=== PATIENT | male | born 1940 | race Caucasian/White ===

== ENCOUNTER 2024-11-19 14:43 | Inpatient (IN) | payer OTHER ==
[2024-11-19] MEDS ORDERED: NA CHLORIDE 0.9% 250 ML ONE (15:12)
[2024-11-19 15:21] LABS: Absolute Lymphocytes (CBC) 0.9 K/uL (0.7-4.9); Absolute Monocytes 1.2 K/uL (0.1-1.3); Absolute Neutrophil 11.8 K/uL (1.8-8.0); Basophils % 0.3 % (0-1.3); Eosinophils % 0.3 % (0-4.4); Hematocrit 39.4 % (39.6-49.0); Hemoglobin 13.1 g/dL (13.6-17.9); Lymphocytes % 6.1 % (15.3-44.8); MCH 30.1 pg (27.0-35.0); MCHC 33.2 g/dL (32.0-36.0); MCV 90.8 fL (80-100); MPV 8.7 fL (7.6-11.3); Monocytes % 8.3 % (3.3-12.3); Platelets 240 thou/uL (152-406); RBC Red Blood Cell Count 4.34 M/uL (4.33-5.43); Red Cell Distribution Width 12.9 % (12.1-15.2)
[2024-11-19 15:40] LABS: Anion Gap 12.5 mEq/L (5.0-15.0); Troponin High Sensitivity 20.5 pg/mL (<58.9)
[2024-11-19 15:43] LABS: Potassium 2.5 mEq/L (3.5-5.1)
--- NOTE | 2024-11-19 15:53 | RAD REPORT ---
EXAMINATION: ONE VIEW CHEST XR CLINICAL INDICATION: Male, 84 years old.,COUGH TECHNIQUE: Frontal chest projection is submitted. Examination is limited by patient positioning and t echnique. COMPARISON: No prior exam. FINDINGS: The lungs are diffusely emphysematous but grossly clear. No pneumothorax or sizable effusion. The he art is normal in size. Mediastinal contours are unremarkable. IMPRESSION: No acute intrathoracic abnormalities.
--- NOTE | 2024-11-19 16:11 | EDPHYS ---
Physician Documentation [facility] Name: Juan Carlos Vazquez Jr Age: 84 yrs Sex: Male : 1940 Arrival Date: 11/19/2024 Time: 14:43 Bed 5 Private MD: [facility] ED Physician Oswaldo Wheeler HPI: 11/19 15:16 This 84 yrs old Male presents to ER via Wheelchair with complaints of ec2 Breathing Difficulty. Historical: - Allergies: 14:53 No Known Allergies; iw - PMHx: 14:53 Hypertensive disorder; iw - Immunization history:: Adult Immunizations up to date. - Infectious Disease History:: Denies. - Social history:: Smoking status: Patient/guardian denies using tobacco, but has a distant history of tobacco abuse. ROS: 16:11 Constitutional: as per hpi ec2 Exam: 16:10 Constitutional: GEN: NAD Head: atraumatic Eyes: EOMI Ears: External ears are ec2 normal. CV: regular rate LUNGS: no respiratory distress ABD: non-distended SKIN: no evidence of rashes MSK: no evidence of trauma Vital Signs: 14:50 BP 134 / 56; Resp 19; Temp 98.3; Pulse Ox 95% ; Pain 0/10; iw 15:15 Pulse 84; ec2 16:38 BP 118 / 58; Pulse 81; Resp 18; Pulse Ox 95% on R/A; ph 14:50 Pain Scale: Adult iw MDM: 14:53 Medical Screening Exam initiated ec2 15:16 ED course: EKG independently reviewed and interpreted by me, shows sinus rhythm, rate ec2 of 84, no acute ST segment elevations, frequent PVCs noted. Intervals are nonactionable.. 15:47 Data reviewed: vital signs, nurses notes. ED course: Patient with hypokalemia at 2.5, ec2 will supplement magnesium and potassium. Likely explains patient's underlying PVCs.. 16:01 ED course: Metabolic profile shows hyponatremia, hypokalemia with potassium of 2.5, ec2 renal dysfunction with a creatinine of 2.15 and a GFR of 30. CBC shows slight leukocytosis at 14. BNP mildly elevated at 3100. Troponin within normal ranges. Chest x-ray shows no acute intrathoracic process. Will admit for hyponatremia, hypokalemia, PVCs. Discussed with hospitalist, pending admission.. 11/19 14:54 Order name: Basic Metabolic Panel; Complete Time: 16:00 ec2 11/19 14:54 Order name: CBC with Diff; Complete Time: 16:00 ec2 11/19 14:54 Order name: NT PRO-BNP; Complete Time: 16:00 ec2 11/19 14:54 Order name: Troponin HS; Complete Time: 16:00 ec2 11/19 14:54 Order name: UAM 2 11/19 17:03 Order name: T4 Free EDMS 11/19 17:03 Order name: Thyroid Stimulating Hormone EDMS 11/19 17:03 Order name: Basic Metabolic Panel EDMS 11/19 17:03 Order name: Basic Metabolic Panel EDMS 11/19 17:03 Order name: Basic Metabolic Panel EDMS 11/19 17:03 Order name: Basic Metabolic Panel [facility] 11/19 17:03 Order name: CBC with Automated Diff EDMS 11/19 17:03 Order name: CBC with Automated Diff EDMS 11/19 17:03 Order name: CBC with Automated Diff EDMS 11/19 17:03 Order name: CBC with Automated Diff EDMS 11/19 17:03 Order name: Hemoglobin A1c EDMS 11/19 17:03 Order name: Hemoglobin A1c EDMS 11/19 17:03 Order name: Lipid Profile EDMS 11/19 17:03 Order name: Lipid Profile [facility] 11/19 17:03 Order name: Magnesium EDMS 11/19 17:03 Order name: Magnesium EDMS 11/19 17:03 Order name: Magnesium EDMS 11/19 17:03 Order name: Magnesium EDMS 11/19 17:03 Order name: Phosphorus EDMS 11/19 17:03 Order name: Phosphorus EDMS 11/19 17:03 Order name: Phosphorus EDMS 11/19 17:03 Order name: Phosphorus EDMS 11/19 17:03 Order name: Troponin High Sensitivity EDMS 11/19 17:03 Order name: Troponin High Sensitivity EDMS 11/19 17:03 Order name: Troponin High Sensitivity EDMS 11/19 17:03 Order name: Basic Metabolic Panel EDMS 11/19 14:54 Order name: XRAY Chest (1 view); Complete Time: 16:00 ec2 11/19 14:54 Order name: EKG; Complete Time: 14:55 ec2 11/19 17:02 Order name: CONS Physician Consult ED[facility] 11/19 17:02 Order name: Physical Therapy Consult [facility] 11/19 14:54 Order name: Cardiac monitoring; Complete Time: 15:18 ec2 11/19 14:54 Order name: EKG - Nurse/Tech; Complete Time: 15:18 ec2 11/19 14:54 Order name: IV Saline Lock; Complete Time: 15:17 ec2 11/19 14:54 Order name: Labs collected and sent; Complete Time: 15:17 ec2 11/19 14:54 Order name: O2 Per Protocol; Complete Time: 15:17 ec2 11/19 14:54 Order name: O2 Sat Monitoring; Complete Time: 15:17 ec2 11/19 14:55 Order name: Cath; Complete Time: 16:26 ec2 Administered Medications: 15:21 Drug: NS 0.9% IV 250 ml IV at bolus once; to be given as a bolus over 30 minutes Route: ph IV; Rate: bolus; Site: right antecubital; 16:03 Follow up: Response: No adverse reaction; IV Status: Completed infusion ph 17:00 Drug: Potassium Chloride PO 40 mEq PO once Route: PO; ph 17:09 Follow up: Response: No adverse reaction ph 17:00 Drug: Potassium Chloride IV 20 mEq IV at calculated rate once; administer over 1-2 ph hours Route: IV; Rate: calculated rate; Site: right forearm; 17:09 Follow up: Response: No adverse reaction; IV Status: Infusion continued upon admission ph 17:00 Drug: Magnesium Sulfate IVPB 2 grams IVPB once over 30 mins Route: IVPB; Infused Over: ph 30 mins; Site: right forearm; 17:09 Follow up: Response: No adverse reaction; IV Status: Infusion continued upon admission ph Disposition: 16:09 Critical Care:. ec2 Disposition Summary: 11/19/24 16:10 Hospitalization Ordered Notes: Hospitalization Status: Inpatient Admission ec2 Provider: Pj Strange [facility] ec2 Condition: Stable ec2 Problem: an acute exacerbation ec2 Symptoms: are unchanged ec2 Bed/Room Type: Standard ec2 Room Assignment: 209(11/19/24 17:07) Diagnosis - Volume Overload, Hypokalemia, Hyponatremia ec2 Forms: - Medication Reconciliation Form ec2 - SBAR form ec2 - Leadership Thank You Letter ec2 Critical care time excluding procedures: 16:09 Critical care time: Bedside Care: 30 minutes, Consultation: 5 minutes, Family ec2 Intervention: 5 minutes. Total time: 40 minutes Signatures: Dispatcher [employer] Maine Mcqueen RN RN Anna Golden RN RN ss Steffi Payan RN RN ph Corral, Edwin, MD MD ec2 Corrections: (The following items were deleted from the chart) 17:07 16:10 ec2 ss
--- NOTE | 2024-11-19 16:11 | ER ---
Nurse's Notes [facility] Name: Juan Carlos Vazquez Jr Age: 84 yrs Sex: Male : 1940 Arrival Date: 11/19/2024 Time: 14:43 Bed 5 Private MD: [facility] Diagnosis: Volume Overload, Hypokalemia, Hyponatremia Presentation: 11/19 14:50 Chief complaint: Patient states: SOB X 1 week, felt hot flashes , it's been hard to iw urinate . He was confused this morning. Coronavirus screen: Client presents with at least one sign or symptom that may indicate coronavirus-19. Ebola Screen: No symptoms or risks identified at this time. Risk Assessment: Do you want to hurt yourself or someone else? Patient reports no desire to harm self or others. Onset of symptoms was November 12, 2024. 14:50 Method Of Arrival: Wheelchair iw 14:50 Acuity: RACHELLE 3 iw 14:52 Initial Sepsis Screen: Does the patient meet any 2 criteria? Does the patient have a iw suspected source of infection? No. Patient's initial sepsis screen is negative. Triage Assessment: 15:18 General: Appears in no apparent distress. comfortable, Behavior is calm, cooperative. ph Pain: Denies pain. Neuro: Level of Consciousness is awake, alert, obeys commands, Oriented to person, place, situation. Cardiovascular: Capillary refill < 3 seconds in bilateral fingers Patient's skin is warm and dry. Respiratory: Respiratory: Reports shortness of breath at rest Onset: The symptoms/episode began/occurred x approx 1 week. GI: No signs and/or symptoms were reported involving the gastrointestinal system. : Reports reduced urination and foul smelling urine. Musculoskeletal: Circulation, motion, and sensation intact. Range of motion: intact in all extremities. Historical: - Allergies: 14:53 No Known Allergies; iw - PMHx: 14:53 Hypertensive disorder; iw - Immunization history:: Adult Immunizations up to date. - Infectious Disease History:: Denies. - Social history:: Smoking status: Patient/guardian denies using tobacco, but has a distant history of tobacco abuse. Screenin:18 [facility] ED Fall Risk Assessment (Adult) History of falling in the last 3 months, ph including since admission No falls in past 3 months (0 pts) Confusion or Disorientation No (0 pts) Intoxicated or Sedated No (0 pts) Impaired Gait No (0 pts) Mobility Assist Device Used No (0 pt) Altered Elimination No (0 pt) Score/Fall Risk Level 0 - 2 = Low Risk Oriented to surroundings, Maintained a safe environment, Hourly rounding (assess needs \T\ fall precautionary measures) done. Abuse screen: Denies threats or abuse. Denies injuries from another. Nutritional screening: No deficits noted. Tuberculosis screening: No symptoms or risk factors identified. Assessment: 15:20 General: SEE TRIAGE ASSESSMENT. ph 17:01 Reassessment: Patient appears in no apparent distress at this time. Patient and/or ph family updated on plan of care and expected duration. Pain level reassessed. Patient is alert, oriented x 3, equal unlabored respirations, skin warm/dry/pink. 17:19 Cardiovascular: Rhythm is regular. Respiratory: Airway is patent Respiratory effort is ko1 even, unlabored, Breath sounds are diminished bilaterally. Vital Signs: 14:50 BP 134 / 56; Resp 19; Temp 98.3; Pulse Ox 95% ; Pain 0/10; iw 15:15 Pulse 84; ec2 16:38 BP 118 / 58; Pulse 81; Resp 18; Pulse Ox 95% on R/A; ph 14:50 Pain Scale: Adult iw ED Course: 14:45 Patient arrived in ED. as 14:45 [facility] is Private Physician. as 14:47 Oswaldo Wheeler MD is Attending Physician. ec2 14:52 Triage completed. iw 14:54 Arm band placed on. iw 14:58 Steffi Payan, RN is Primary Nurse. ph 15:18 Initial lab(s) drawn, by ut, sent to lab. EKG done, by ED staff, reviewed by Oswaldo Wheeler MD. Inserted saline lock: 22 gauge in right forearm, using aseptic technique. Blood collected. Flushed with 10 mL NS. 15:20 Patient has correct armband on for positive identification. Placed in gown. Bed in low ph position. Call light in reach. Side rails up X 1. Client placed on continuous cardiac and pulse oximetry monitoring. NIBP monitoring applied. quality assurance monitor on. Door closed. Noise minimized. 15:30 XRAY Chest (1 view) In Process Unspecified. EDMS 16:10 Pj Strange is Hospitalizing Provider. ec2 16:37 Archuleta cath inserted, using sterile technique, 12 Fr., by ut, balloon inflated, to ph gravity drainage, urine specimen collected. returned cloudy urine. Patient tolerated well. IV discontinued, intact, bleeding controlled, No redness/swelling at site. Pressure dressing applied. Inserted saline lock: 22 gauge in right forearm, using aseptic technique. Flushed with 10 mL NS. 17:09 No provider procedures requiring assistance completed. Patient admitted, IV remains in ph place. 17:19 Provided Education on: admit. ko1 Administered Medications: 15:21 Drug: NS 0.9% IV 250 ml IV at bolus once; to be given as a bolus over 30 minutes Route: ph IV; Rate: bolus; Site: right antecubital; 16:03 Follow up: Response: No adverse reaction; IV Status: Completed infusion ph 17:00 Drug: Potassium Chloride PO 40 mEq PO once Route: PO; ph 17:09 Follow up: Response: No adverse reaction ph 17:00 Drug: Potassium Chloride IV 20 mEq IV at calculated rate once; administer over 1-2 ph hours Route: IV; Rate: calculated rate; Site: right forearm; 17:09 Follow up: Response: No adverse reaction; IV Status: Infusion continued upon admission ph 17:00 Drug: Magnesium Sulfate IVPB 2 grams IVPB once over 30 mins Route: IVPB; Infused Over: ph 30 mins; Site: right forearm; 17:09 Follow up: Response: No adverse reaction; IV Status: Infusion continued upon admission ph Medication: 15:20 VIS not applicable for this client. ph Outcome: 16:10 Decision to Hospitalize by Provider. ec2 17:19 Condition: stable ko1 17:19 Instructed on the need for admit, 17:49 Patient left the ED. ko1 Signatures: Dispatcher [employer] Vivien Mcfarland Irene, RN RN iw Steffi Payan RN RN ph Tatianna Gamino RN RN ko1 Oswaldo Wheeler MD MD ec2 Corrections: (The following items were deleted from the chart) 14:53 14:50 Chief complaint: Patient states: SOB X 1 week, felt hot flashes , it's been hard iw to urinate iw 15:01 14:50 Resp 19bpm; Pulse Ox 95%; Temp 98.3F; Pain 0/10, Adult; iw iw
--- NOTE | 2024-11-19 16:24 | P.HP ---
Certification for Inpatient Patient admitted to: Inpatient With expected LOS: >2 Midnights Practitioner: I am a practitioner with admitting privileges, knowledge of patient current condition, hospital course, and medical plan of care. Services: Services provided to patient in accordance with Admission requirements found in Title 42 Section 412.3 of the Code of Federal Regulations Patient History Date of Service: 11/19/24 Reason for admission: Electrolyte abnormalities History of Present Illness: Juan Carlos Vazquez is an 84-year-old male with past medical history of hypertension, CKD who presents to the ED with shortness of breath for one week. Juan Carlos and the friends with him not a good historian. Juan Carlos reports he eats well and denies fever, chills, chest pain, and urinary symptoms. He reports being short of breath while walking. On evaluation, bilateral lung sounds are clear, no acute distress, on RA with stable vital signs. Laboratory evaluation showing BNP was 3162, BUN/creatinine 69/2.15, GFR 30, potassium 2.5, sodium 125, serum glucose 158. Chest x-ray reports "The lungs are diffusely emphysematous but grossly clear." Juan Carlos will be admitted to hospitalist service for hyponatremia, hypokalemia, and SOB. Nephrology consulted. - Past Medical/Surgical History -: HTN -: CKD Past Surgical History: Unable to obtain - Family History Family History: Reviewed- Non-Contributory - Social History Smoking Status: Never smoker Alcohol use: No CD- Drugs: No Review of Systems Respiratory: Shortness of Breath, SOB with Excertion Physical Examination - Physical Exam General: Alert, In no apparent distress, Oriented x3 HEENT: Atraumatic, Normocephalic, PERRLA Neck: Supple, 2+ carotid pulse no bruit Respiratory: Clear to auscultation bilaterally, Normal air movement Cardiovascular: No edema, Normal pulses, Regular rate/rhythm, Normal S1 S2 Gastrointestinal: Normal bowel sounds, Soft and benign Musculoskeletal: No clubbing, No warmth Neurological: Normal speech, Normal tone - Studies Laboratory Data (last 24 hrs) 11/19/24 11/19/24 15:15 15:15 WBC 13.90 H Hgb 13.1 L Hct 39.4 L Plt Count 240 Sodium 125 L Potassium 2.5 L* BUN 69 H Creatinine 2.15 H Glucose 158 H Assessment and Plan - Plan Assessment and Plan Hypervolemia hyponatremia with CKD Suspect CHF CKD stage unspecified Hypokalemia -potassium 2.5, sodium 125, BNP 3163 -clinically euvolemic- no edema present -mag and potassium given in the ED -Chest x-ray reports "The lungs are diffusely emphysematous but grossly clear." -No records to verify Shortness of breath 2/2 emphysema -Chest x-ray reports "The lungs are diffusely emphysematous but grossly clear." - currently on room air -duonebs UTI -UA suggestive of UTI -rocephin -Follow urine culture Hyperglycemic -A1C in the AM -serum glucose 158 HTN -continue home medication when appropriate DVT ppx heparin Full code LOS 23 hour obs Discharge Plan: Home Plan to discharge in: 48 Hours - Advance Directives Does patient have a Living Will: No Does patient have a Durable POA for Healthcare: No
[2024-11-19] MEDS ORDERED: POTASSIUM CL SA 10 MEQ TAB PO ONE (16:28)
[2024-11-19] MEDS ORDERED: Magnesium Sulfate 2gm IVPB 2 G/50 ML BAG IV ONE (16:29)
[2024-11-19] MEDS ORDERED: NA CHLORIDE 0.9% 500 ML ONE (16:29)
[2024-11-19] MEDS ORDERED: KCL 20 MEQ/100 mL IVPB 100 ML IV ONE (16:29)
[2024-11-19] MEDS ORDERED: ACETAMINOPHEN 325 MG TABLET PO PRN (16:53)
[2024-11-19] MEDS: NA CHLORIDE 0.9% 1,000 ML IV SCH (17:00)
[2024-11-19 17:09] LABS: Specific Gravity 1.011 (1.005-1.030); Sqamous Epithelial None Seen /HPF (None Seen); Urine Bacteria <20 /HPF (<20); Urine Bilirubin NEGATIVE (Negative); Urine Blood 2+ (Negative); Urine Clarity Extremely Turbid (Clear); Urine Color Light-Orange (Yellow); Urine Crystals Unidentified Few /HPF (None Seen); Urine Culture Reflex Order REFLEXED; Urine Glucose NEGATIVE (Negative); Urine Ketones NEGATIVE (Negative); Urine Micro Reflex YN NO BILL MICROSCOPIC; Urine Mucus Slight /HPF (None Seen); Urine Nitrite NEGATIVE (Negative); Urine Protein 1+ (Negative); Urine RBC 21-50 /HPF (None Seen); Urine Urobilinogen Normal (Normal); Urine WBC >50 /HPF (<5); Urine WBC Clump Many /HPF (None Seen); Urine Yeast (Budding) Moderate /HPF (None Seen)
[2024-11-19 18:03] VITALS: BMI 21.0
[2024-11-19 18:15] LABS: Thyroid Stimulating Hormone 2.53 uIU/mL (0.358-3.740)
[2024-11-19] MEDS: POTASSIUM 25 MEQ EFFERV TAB PO SCH (19:55)
[2024-11-19] MEDS: CEFTRIAXONE 1,000 MG in NA CHLORIDE 0.9% 50 ML IVPB SCH (19:55)
[2024-11-19] MEDS: ALBUTEROL 2.5 MG/3 ML NEB SOL NEB SCH (20:27)
[2024-11-19] MEDS: IPRATROPIUM BROM 0.5MG/2.5ML NEB SCH (20:27)
[2024-11-19 22:48] LABS: Anion Gap 10.1 mEq/L (5.0-15.0); Troponin High Sensitivity 15.4 pg/mL (<58.9)
[2024-11-19 22:49] LABS: Potassium 3.1 mEq/L (3.5-5.1)
[2024-11-20] MEDS: POTASSIUM CL SA 10 MEQ TAB PO ONE (00:01)
[2024-11-20 06:29] LABS: Absolute Eosinophils 0.1 K/uL (0-0.5); Absolute Monocytes 1.1 K/uL (0.1-1.3); Basophils % 0.3 % (0-1.3); Eosinophils % 0.7 % (0-4.4); Hematocrit 36.6 % (39.6-49.0); Hemoglobin 12.7 g/dL (13.6-17.9); Lymphocytes % 6.8 % (15.3-44.8); MCH 30.7 pg (27.0-35.0); MCHC 34.5 g/dL (32.0-36.0); MCV 88.9 fL (80-100); MPV 8.9 fL (7.6-11.3); Monocytes % 8.1 % (3.3-12.3); Neutrophils % 84.1 % (41.7-73.7); Nucleated Red Blood Cells % 0.1 % (0-0); Platelets 288 thou/uL (152-406); RBC Red Blood Cell Count 4.12 M/uL (4.33-5.43); Red Cell Distribution Width 13.1 % (12.1-15.2)
[2024-11-20 06:55] LABS: Anion Gap 10.5 mEq/L (5.0-15.0); Magnesium 2.6 mg/dL (1.6-2.4); Potassium 3.5 mEq/L (3.5-5.1)
--- NOTE | 2024-11-20 09:03 | P.PN ---
Date of Service: 11/20/24 Subjective: No acute events overnight Breathing well on room air Very poor historian-[facility] Unsure of home meds, possibly takes a diuretic? ROS: 10 point ROS as noted above, otherwise negative Physical exam GEN: Alert, oriented, NAD HEENT: Normal conjunctiva, sclera anicteric CV: Regular rate and rhythm, no edema Pulm: Nonlabored respirations on room air ABD: Soft, nontender, nondistended MSK: No joint tenderness Integumentary: No rashes Neuro: Normal speech, normal affect Vitals reviewed Assessment and Plan Hyponatremia Elevated BNP Nonsustained VT CKD stage unspecified Hypokalemia -clinically euvolemic- no edema present -mag and potassium given in the ED -Chest x-ray reports "The lungs are diffusely emphysematous but grossly clear." -Patient very poor historian, unsure of any medical history or what medications he takes at home -[facility], nurse reaching out to pharmacy to obtain his home medications -Patient does believe that he takes a diuretic -Does not appear grossly overloaded on exam -Await med rec, continue gentle IV fluids for now, echocardiogram ordered -Cardiology consulted given nonsustained V. tach overnight -Denies previous cardiac evaluation of any kind that he can remember -Does report some dyspnea on exertion periodically Shortness of breath 2/2 emphysema -Chest x-ray reports "The lungs are diffusely emphysematous but grossly clear." - currently on room air -duonebs PRN UTI -UA suggestive of UTI -rocephin -Follow urine culture HTN -continue home medication when appropriate DVT ppx heparin Full code Discharge Plan: Home Plan to discharge in: 48 Hours Time Spent Managing Pts Care (In Minutes): 35
[2024-11-20] MEDS: POTASS/SODIUM PHOSPHATE 1 PKT POWD.PACK PO SCH (10:00)
--- NOTE | 2024-11-20 10:13 | P.CNS ---
Date of Consult: 11/20/24 Reason for Consult: Hyponatremia, CARMELO, hypokalemia Requesting Physician: Ronit Trevino Chief Complaint: Electrolyte abnormalities History of Present Illness: Pt is an elderly male who is a poor historian so most of the history is obtained through chart review who came in through the ER with some vague complains and confusion it appears and was found on blood work and urine testing to have evidence of renal impairment, hypokalemia and hyponatremia and pyuria, UTI. It appears prieto was placed in the ER, he is not able to tell me if he has bladder or prostate issues. Unclear which home meds he is takin but he mentions possible diuretic use. He denies acute complaints currently. Allergies No Known Allergies Allergy (Unverified 11/19/24 18:03) - Past Medical/Surgical History Diabetic: No -: HTN -: CKD - Social History Smoking Status: Former smoker Alcohol use: No CD- Drugs: No Caffeine use: No Place of Residence: Home Review of Systems is unable to be obtained Physical Examination Temp Pulse Resp BP Pulse Ox 98.9 F 77 20 118/58 L 100 11/20/24 08:00 11/20/24 08:00 11/20/24 08:00 11/20/24 08:00 11/20/24 08:00 General: In no apparent distress, Cooperative HEENT: Atraumatic, Normocephalic Neck: Supple Respiratory: Normal air movement, Other (No rhonchi or wheezing) Cardiovascular: No edema, Regular rate/rhythm, No gallops Gastrointestinal: Soft and benign, Non-distended, No tenderness Musculoskeletal: No swelling, No tenderness, Other (muscle mass loss) Integumentary: No rashes Neurological: Normal speech Urinary: Prieto catheter Laboratory Data (last 24 hrs) 11/19/24 11/19/24 15:15 15:15 WBC 13.90 H Hgb 13.1 L Hct 39.4 L Plt Count 240 Sodium 125 L Potassium 2.5 L* BUN 69 H Creatinine 2.15 H Glucose 158 H Conclusions/Impression: A/P) 1. Acute or sub acute Stage II 2nd to apparent volume depletion, pre renal azotemia given improvement in labs post hydration. Unknown baseline 2. Hyponatremia, mod, unclear duration, again likely with hypovolemic component. Cont to trend Na levels closely, avoid rapid correction, thus far not seen 3. Hypokalemia 2nd to possible impaired PO intake, possible OP diuretic use, other -repleting, will place on IVF with KCL 4. Pyuria, microscopic hematuria, bacteriuria c/w UTI POA. Prieto it appears inserted in the ER, maintain for now. Yeast noted on UA, will add Fluconazole to the IV Rocephin coverage
[2024-11-20] MEDS: POTASSIUM 25 MEQ EFFERV TAB ONE (10:37)
[2024-11-20] MEDS: NS KCL 20MEQ 20 MEQ/1,000 ML BAG IV SCH (11:20)
[2024-11-20] MEDS: FLUCONAZOLE 100 MG TAB PO SCH (11:20)
--- NOTE | 2024-11-20 12:39 | P.CNS ---
Date of Consult: 11/20/24 Chief Complaint: Electrolyte abnormalities History of Present Illness: Patient with no significant PMH, presented with weakness, SOB, patient electrolytes were low, cardiology was consulted for NSVT. patient denies having any prior history of cardiac problems. Allergies No Known Allergies Allergy (Unverified 11/19/24 18:03) Home medications list reviewed: Yes - Past Medical/Surgical History Diabetic: No -: HTN -: CKD - Social History Smoking Status: Former smoker Alcohol use: No CD- Drugs: No Caffeine use: No Place of Residence: Home Review of Systems 10-point ROS is otherwise unremarkable Physical Examination Temp Pulse Resp BP Pulse Ox 98.9 F 77 20 118/58 L 100 11/20/24 08:00 11/20/24 08:00 11/20/24 08:00 11/20/24 08:00 11/20/24 08:00 General: Alert, In no apparent distress HEENT: Atraumatic, PERRLA, Mucous membr. moist/pink, EOMI, Sclerae nonicteric Neck: Supple, 2+ carotid pulse no bruit, No LAD, Without JVD or thyroid abnormality Respiratory: Clear to auscultation bilaterally, Normal air movement Cardiovascular: Regular rate/rhythm, Normal S1 S2 Gastrointestinal: Normal bowel sounds, No tenderness Musculoskeletal: No tenderness Integumentary: No rashes Neurological: Normal gait, Normal speech, Normal tone, Normal affect Lymphatics: No axilla or inguinal lymphadenopathy Laboratory Data (last 24 hrs) 11/20/24 11/20/24 11/19/24 05:49 05:49 22:05 WBC 14.30 H Hgb 12.7 L Hct 36.6 L Plt Count 288 Sodium 127 L 128 L Potassium 3.5 3.1 L D BUN 58 H 69 H Creatinine 1.67 H 1.99 H Glucose 116 H 184 H Phosphorus 2.0 L Magnesium 2.6 H Triglycerides 86 Cholesterol 72 HDL Cholesterol 19 L Cholesterol/HDL Ratio 3.79 11/19/24 11/19/24 15:15 15:15 WBC 13.90 H Hgb 13.1 L Hct 39.4 L Plt Count 240 Sodium 125 L Potassium 2.5 L* BUN 69 H Creatinine 2.15 H Glucose 158 H Phosphorus Magnesium Triglycerides Cholesterol HDL Cholesterol Cholesterol/HDL Ratio - Problems (1) NSVT (nonsustained ventricular tachycardia) Current Visit: Yes Status: Acute Plan: patient K was low, please replace K aggressively for a level more than 4 and Mg for a level more than 2 get echo start lopressor 25 mg po BID If NSVT re happen then patient will need ischemia evaluation.
[2024-11-20 13:27] LABS: Anion Gap 6.5 mEq/L (5.0-15.0); Potassium 3.5 mEq/L (3.5-5.1)
[2024-11-20] MEDS: METOPROLOL TAR 25 MG TAB PO SCH (17:22)
[2024-11-20 17:53] LABS: UR SODIUM < 15 mmol/L (27-287)
[2024-11-20 17:55] LABS: UR PROTEIN 48.1 mg/dL (<11.9); Urine Protein/Creatinine Ratio 0.73 ratio (<0.15)
[2024-11-21 04:56] LABS: Absolute Basophils 0.1 K/uL (0-0.5); Absolute Eosinophils 0.2 K/uL (0-0.5); Absolute Lymphocytes (CBC) 1.6 K/uL (0.7-4.9); Absolute Monocytes 0.9 K/uL (0.1-1.3); Absolute Neutrophil 7.1 K/uL (1.8-8.0); Basophils % 0.6 % (0-1.3); Eosinophils % 1.6 % (0-4.4); Hematocrit 33.7 % (39.6-49.0); Hemoglobin 11.6 g/dL (13.6-17.9); Lymphocytes % 16.2 % (15.3-44.8); MCH 31.1 pg (27.0-35.0); MCHC 34.5 g/dL (32.0-36.0); MCV 90.3 fL (80-100); MPV 8.7 fL (7.6-11.3); Monocytes % 9.2 % (3.3-12.3); Neutrophils % 72.4 % (41.7-73.7); Platelets 244 thou/uL (152-406); RBC Red Blood Cell Count 3.73 M/uL (4.33-5.43)
[2024-11-21 05:12] LABS: Anion Gap 9.3 mEq/L (5.0-15.0); Magnesium 2.1 mg/dL (1.6-2.4); Phosphorus 2.3 mg/dL (2.5-4.9); Potassium 3.3 mEq/L (3.5-5.1)
[2024-11-21] MEDS ORDERED: POTASSIUM 25 MEQ EFFERV TAB PO ONE (07:06)
[2024-11-21 07:30] LABS: Band Neutrophils 2 % (0-1); Differential Total Cells Count 100; Eosinophils 4 % (0-3); Lymphocytes 20 % (15-42); Monocytes 8 % (0-10); Segmented Neutrophils 65 % (40-80)
[2024-11-21 07:31] LABS: Blood Morphology Comment NOT SEEN (NOT SEEN); Metamyelocytes 1 % (0-0); Platelet Estimate ADEQ
[2024-11-21] MEDS: MIST INHAL IH SCH (08:53)
[2024-11-21] MEDS: TIOTROPIUM BROMIDE 4 GM IH SCH (08:53)
[2024-11-21] MEDS: LORATADINE 10 MG TAB PO SCH (08:59)
[2024-11-21] MEDS: AMLODIPINE 10 MG TAB PO SCH (08:59)
[2024-11-21] MEDS: TAMSULOSIN 0.4 MG SR CAP PO SCH (08:59)
[2024-11-21] MEDS: FOLIC ACID 1 MG TABLET PO SCH (08:59)
[2024-11-21] MEDS: THIAMINE HCL 100 MG TABLET PO SCH (09:00)
--- NOTE | 2024-11-21 09:04 | P.PN ---
Date of Service: 11/21/24 Subjective: No acute events overnight Breathing well on room air Med rec performed yesterday Holding PO lasix ROS: 10 point ROS as noted above, otherwise negative Physical exam GEN: Alert, oriented, NAD HEENT: Normal conjunctiva, sclera anicteric CV: Regular rate and rhythm, no edema Pulm: Nonlabored respirations on room air ABD: Soft, nontender, nondistended MSK: No joint tenderness Integumentary: No rashes Neuro: Normal speech, normal affect Vitals reviewed Assessment and Plan Hyponatremia Elevated BNP Nonsustained VT CKD stage unspecified Hypokalemia -clinically euvolemic- no edema present -Sodium improving -mag and potassium replacement -Chest x-ray reports "The lungs are diffusely emphysematous but grossly clear." -Patient very poor historian, unsure of any medical history or what medications he takes at home -Holding home PO lasix -Cardiology consulted given nonsustained V. tach overnight, had only 5 beats last night -Continue metoprolol as recommended by cardiology -Replete electrolytes -Denies previous cardiac evaluation of any kind that he can remember -Does report some dyspnea on exertion periodically Shortness of breath 2/2 emphysema -Chest x-ray reports "The lungs are diffusely emphysematous but grossly clear." - currently on room air -duonebs PRN UTI -Urine culture shows E. coli -Started Augmentin -RAULITO prieto this AM HTN -Home medications continued, holding Lasix DVT ppx heparin Full code Discharge Plan: Home Plan to discharge in: 48 Hours Time Spent Managing Pts Care (In Minutes): 35
[2024-11-21] MEDS: AMOX/K CLAV 875 MG TAB PO SCH (09:50)
[2024-11-21] MEDS: KCL 20 MEQ/100 mL IVPB 20 MEQ/100 ML BAG IV SCH (09:50)
[2024-11-21] MEDS: NA CHLORIDE 0.9% 250 ML ONE (09:50)
--- NOTE | 2024-11-21 10:43 | P.PN ---
(S) Pt has no acute complaints, labs improving, pt reports managing meds on his own at home (O) vitals reviewed in the EMR General: In no apparent distress, Cooperative HEENT: Atraumatic, Normocephalic Neck: Supple Respiratory: Normal air movement, Other (No rhonchi or wheezing) Cardiovascular: No edema, Regular rate/rhythm, No gallops Gastrointestinal: Soft and benign, Non-distended, No tenderness Musculoskeletal: No swelling, No tenderness, Other (muscle mass loss) Integumentary: No rashes Neurological: Normal speech Urinary: Archuleta catheter Conclusions/Impression: A/P) 1. Acute or sub acute Stage II 2nd to apparent volume depletion, pre renal azotemia given improvement in labs post hydration. Unknown baseline but with levels improving nicely 2. Hyponatremia, mod, unclear duration, again likely with hypovolemic component. Na level now > 130, acceptable rate of correction 3. Hypokalemia 2nd to possible impaired PO intake, OP diuretic use, other - repleting, hold lasix on discharge 4. Pyuria, microscopic hematuria, bacteriuria c/w UTI POA. Archuleta it appears inserted in the ER, assess voiding trial. Yeast noted on UA, did add Fluconazole to the IV Rocephin coverage and can switch to PO cephalosporin on discharge to complete course
[2024-11-21] MEDS: POTASSIUM PHOS IN 0.9 % NACL 15 MMOL/250 ML BAG IV ONE (12:26)
--- NOTE | 2024-11-21 13:41 | EKG ---
Test Date: 2024-11-19 Test Time: 15:09:45 Cryptologic Linguist: PH MEASUREMENT RESULTS: Intervals: Rate: 84 [place]: 180 QRSD: 112 QT: 412 QTc: 486 [place]: P: 77 [place]: 180 QRS: 71 T: 79 INTERPRETIVE STATEMENTS: Sinus rhythm with frequent premature ventricular complexes and premature atrial complexes ST abnormality, possible digitalis effect Prolonged QT Abnormal ECG No previous ECG available for comparison Electronically Signed On 11-21-24 13:37:03 DENTAL EQUIPMENT MECH[employer]IC by Arya Ghosh
[2024-11-21] MEDS: FUROSEMIDE 40 MG/4 ML VIAL ONE (19:37)
[2024-11-21] MEDS: POTASSIUM CL SA 10 MEQ TAB PO ONE (20:39)
[2024-11-21 22:07] LABS: Albumin/Globulin Ratio 0.5 (1.1-1.8); Anion Gap 8.9 mEq/L (5.0-15.0); Bilirubin Total 0.2 mg/dL (0.2-1.0); Globulin 3.9 g/dL (2.3-3.5); Potassium 3.9 mEq/L (3.5-5.1); Protein, Total 5.9 g/dL (6.4-8.2)
[2024-11-21 22:11] LABS: Magnesium 1.8 mg/dL (1.6-2.4); Phosphorus 2.6 mg/dL (2.5-4.9)
[2024-11-21] MEDS: MAGNESIUM SULFATE 1 gm IVPB 1 GM/100 ML BAG IV ONE (22:42)
[2024-11-22 05:43] LABS: Absolute Basophils 0.1 K/uL (0-0.5); Absolute Eosinophils 0.3 K/uL (0-0.5); Absolute Lymphocytes (CBC) 1.7 K/uL (0.7-4.9); Absolute Monocytes 0.8 K/uL (0.1-1.3); Absolute Neutrophil 7.2 K/uL (1.8-8.0); Basophils % 0.5 % (0-1.3); Eosinophils % 2.8 % (0-4.4); Hematocrit 34.2 % (39.6-49.0); Hemoglobin 11.5 g/dL (13.6-17.9); Lymphocytes % 16.7 % (15.3-44.8); MCHC 33.7 g/dL (32.0-36.0); MCV 91.8 fL (80-100); MPV 8.7 fL (7.6-11.3); Monocytes % 8.3 % (3.3-12.3); Neutrophils % 71.7 % (41.7-73.7); Platelets 300 thou/uL (152-406); RBC Red Blood Cell Count 3.73 M/uL (4.33-5.43); Red Cell Distribution Width 13.5 % (12.1-15.2)
[2024-11-22 05:55] LABS: Anion Gap 9.8 mEq/L (5.0-15.0); Phosphorus 2.4 mg/dL (2.5-4.9); Potassium 3.8 mEq/L (3.5-5.1)
[2024-11-22] MEDS: POTASSIUM CL SA 10 MEQ TAB PO ONE (07:20)
[2024-11-22] MEDS: AMLODIPINE 5 MG TAB PO SCH (07:52)
--- NOTE | 2024-11-22 09:35 | P.PN ---
Date of Service: 11/22/24 Subjective: No acute events overnight Breathing well on room air Renal fxn improved ROS: 10 point ROS as noted above, otherwise negative Physical exam GEN: Alert, oriented, NAD HEENT: Normal conjunctiva, sclera anicteric CV: Regular rate and rhythm, no edema Pulm: Nonlabored respirations on room air ABD: Soft, nontender, nondistended MSK: No joint tenderness Integumentary: No rashes Neuro: Normal speech, normal affect Vitals reviewed Assessment and Plan Hyponatremia Elevated BNP Nonsustained VT CKD stage unspecified Hypokalemia -clinically euvolemic- no edema present -Sodium improving -mag and potassium replacement -Chest x-ray reports "The lungs are diffusely emphysematous but grossly clear." -Holding home PO lasix -Cardiology consulted given nonsustained V. tach overnight, had only 5 beats OVN 11/21 -Continue metoprolol as recommended by cardiology -outpatient stress in clinic 9AM sunday -Replete electrolytes -Denies previous cardiac evaluation of any kind that he can remember -Does report some dyspnea on exertion periodically Shortness of breath 2/2 emphysema -Chest x-ray reports "The lungs are diffusely emphysematous but grossly clear." - currently on room air -duonebs PRN UTI -Urine culture shows E. coli -Started Augmentin -Archuleta removed, voiding freely HTN -Home medications continued, holding Lasix DVT ppx heparin Full code Discharge Plan: Home Plan to discharge in: 24 hours Time Spent Managing Pts Care (In Minutes): 35
[2024-11-22] MEDS: TAMSULOSIN 0.4 MG SR CAP PO SCH (20:04)
[2024-11-23 00:30] VITALS: O2SAT 95
[2024-11-23] MEDS: POTASS/SODIUM PHOSPHATE 1 PKT POWD.PACK PO SCH (08:16)
[2024-11-23] MEDS: POTASSIUM CL SA 10 MEQ TAB PO ONE (08:19)
[2024-11-23 08:21] VITALS: BP 127/63
[2024-11-23 08:29] VITALS: TEMP 97.9
--- NOTE | 2024-11-23 09:30 | P.DS ---
Admission Date: 11/20/24 Discharge Date: 11/23/24 Disposition: ROUTINE DISCHARGE Discharge Condition: GOOD Reason for Admission: Electrolyte abnormalities Brief History of Present Illness: Juan Carlos Vazquez is an 84-year-old male with past medical history of hypertension, CKD who presents to the ED with shortness of breath for one week. Juan Carlos and the friends with him not a good historian. Juan Carlos reports he eats well and denies fever, chills, chest pain, and urinary symptoms. He reports being short of breath while walking. On evaluation, bilateral lung sounds are clear, no acute distress, on RA with stable vital signs. Laboratory evaluation showing BNP was 3162, BUN/creatinine 69/2.15, GFR 30, potassium 2.5, sodium 125, serum glucose 158. Chest x-ray reports "The lungs are diffusely emphysematous but grossly clear." Juan Carlos will be admitted to hospitalist service for hyponatremia, hypokalemia, and SOB. Nephrology consulted. Hospital Course: Assessment and Plan Hyponatremia Elevated BNP Nonsustained VT CKD stage unspecified Hypokalemia Shortness of breath 2/2 emphysema UTI HTN Patient was admitted to the hospital for hyponatremia, UTI. Med rec was performed as patient was a poor historian and it was determined that he was taking furosemide at home. Patient appeared dry, his furosemide was held and he was given gentle IV hydration. Sodium gradually improved and is now 133. He also had a urinary tract infection, urine culture grew E. coli sensitive to Augmentin. Additionally it was noted that patient had short runs (5 beats) of nonsustained V. tach as well as some periodic bigeminy/trigeminy. This was discussed with cardiology who wishes for patient to come to the cardiology clinic in [place] Sunday morning at [address] Ghosh. Please follow-up with your primary care doctor in 1 week Please show up at the cardiology clinic tomorrow at [address] Ghosh Discontinue/stop taking the Lasix/furosemide that you have at home Take the antibioticAugmentin as prescribed for an additional 3 days Cardiology also recommended starting the medication of metoprolol tartrate 25 mg by mouth twice daily, a prescription for this has also been sent to your pharmacy [facility] in [place] Vital Signs/Physical Exam: Temp Pulse Resp BP Pulse Ox 97.9 F 74 14 127/63 93 11/23/24 08:00 11/23/24 08:18 11/23/24 08:00 11/23/24 08:18 11/23/24 08:00 General: Alert, In no apparent distress, Oriented x3 HEENT: Atraumatic, PERRLA, EOMI Neck: Supple, JVD not distended Respiratory: Clear to auscultation bilaterally, Normal air movement Cardiovascular: Regular rate/rhythm, Normal S1 S2 Gastrointestinal: Normal bowel sounds, No tenderness Musculoskeletal: No tenderness Integumentary: No rashes Neurological: Normal speech, Normal tone, Normal affect Laboratory Data at Discharge: WBC 10.00 thou/uL (4.3-10.9) 11/22/24 05:01 Hgb 11.5 g/dL (13.6-17.9) L 11/22/24 05:01 Hct 34.2 % (39.6-49.0) L 11/22/24 05:01 Plt Count 300 thou/uL (152-406) 11/22/24 05:01 Sodium 133 mEq/L (136-145) L 11/22/24 05:01 Potassium 3.8 mEq/L (3.5-5.1) 11/22/24 05:01 BUN 25 mg/dL (7-18) H 11/22/24 05:01 Creatinine 1.20 mg/dL (0.70-1.30) 11/22/24 05:01 Glucose 112 mg/dL (74-106) H 11/22/24 05:01 Phosphorus 2.4 mg/dL (2.5-4.9) L 11/22/24 05:01 Magnesium 2.0 mg/dL (1.6-2.4) 11/22/24 05:01 Total Bilirubin 0.2 mg/dL (0.2-1.0) 11/21/24 21:21 AST 22 U/L (15-37) 11/21/24 21:21 ALT 30 U/L (16-61) 11/21/24 21:21 Alkaline Phosphatase 54 U/L (45-117) 11/21/24 21:21 Triglycerides 86 mg/dL (<150) 11/20/24 05:49 Cholesterol 72 mg/dL (<200) 11/20/24 05:49 HDL Cholesterol 19 mg/dL (40-60) L 11/20/24 05:49 Cholesterol/HDL Ratio 3.79 11/20/24 05:49 Home Medications: Albuterol Sulfate [Albuterol Sulfate 0.083% Neb Soln] 2.5 mg IH QID PRN 11/20/24 Amlodipine [Norvasc*] 10 mg PO DAILY 11/20/24 Folic Acid 1 mg PO DAILY 11/20/24 Loratadine [Claritin*] 10 mg PO DAILY 11/20/24 Multivitamin 1 tab PO DAILY 11/20/24 Tamsulosin [Flomax*] 0.8 mg PO DAILY 11/20/24 Thiamine HCl 100 mg PO DAILY 11/20/24 Tiotropium [place] [Spiriva Respimat] 2 spray IH DAILY 11/20/24 Amox/Clavulanate [Augmentin 875-125 Tab] 875 mg PO BID 3 Days #6 tab 11/23/24 Metoprolol Tartrate [Lopressor*] 25 mg PO BID 6AM 6PM #60 tab 11/23/24 New Medications: Amox/Clavulanate [Augmentin 875-125 Tab] 875 mg PO BID 3 Days #6 tab Metoprolol Tartrate [Lopressor*] 25 mg PO BID 6AM 6PM #60 tab Physician Discharge Instructions: PROBLEM:Low Sodium, Low potassium, UTI GOAL: Clear understanding of disease process INSTRUCTIONS: Diet: Regular Activity: Fall precautions Patient was admitted to the hospital for hyponatremia, UTI. Med rec was performed as patient was a poor historian and it was determined that he was taking furosemide at home. Patient appeared dry, his furosemide was held and he was given gentle IV hydration. Sodium gradually improved and is now 133. He also had a urinary tract infection, urine culture grew E. coli sensitive to Augmentin. Additionally it was noted that patient had short runs (5 beats) of nonsustained V. tach as well as some periodic bigeminy/trigeminy. This was discussed with cardiology who wishes for patient to come to the cardiology clinic in [place] Sunday morning at [address] Ghosh. Please follow-up with your primary care doctor in 1 week Please show up at the cardiology clinic tomorrow at [address] Ghosh Discontinue/stop taking the Lasix/furosemide that you have at home Take the antibioticAugmentin as prescribed for an additional 3 days Cardiology also recommended starting the medication of metoprolol tartrate 25 mg by mouth twice daily, a prescription for this has also been sent to your pharmacy [facility] in [place] Diet: Regular Activity: Fall precautions Followup: HEATHER ROMERO [Primary Care Provider] - 1-2 Weeks Arya Ghosh MD [ACTIVE - CAN ADMIT] - 1 Day Time spent managing pt's care (in minutes): 40
--- NOTE | 2024-11-25 07:14 | ECHO ---
HEIGHT: 5 ft 11 in WEIGHT: 151 lb 0 oz DATE OF STUDY: 11/21/[address]: Pritesh Davidson NP 2-DIMENSIONAL: YES M.MODE: YES DOPPLER: YES COLOR FLOW: YES TDS: YES PORTABLE: YES DEFINITY: NO BUBBLE STUDY: NO DIAGNOSIS: NON SUSTAINED VTACH CARDIAC HISTORY: CATHERIZATION: NO SURGERY: NO PROSTHETIC VALVE: NO PACEMAKER: NO MEASUREMENTS (cm) DIASTOLIC (NORMALS) SYSTOLIC (NORMALS) IVSd 1.1 (0.6-1.2) LA Diam 2.2 (1.9-4.0) LVEF 50-55% LVIDd 4.7 (3.5-5.7) LVIDs 3.7 (2.0-3.5) %FS 21% LVPWd 1.1 (0.6-1.2) Ao Diam 2.4 (2.0-3.7) 2 DIMENSIONAL ASSESSMENT: RIGHT ATRIUM: NORMAL LEFT ATRIUM: NORMAL RIGHT VENTRICLE: NORMAL LEFT VENTRICLE: NORMAL TRICUSPID VALVE: MILD TRICUSPID REGURGITATION MITRAL VALVE: TRACE MITRAL REGURGITATION PULMONIC VALVE: NORMAL AORTIC VALVE: TRACE AORTIC INSUFFICIENCY PERICARDIAL EFFUSION: NONE AORTIC ROOT: NORMAL LEFT VENTRICULAR WALL MOTION: NORMAL. DOPPLER/COLOR FLOW: SEE BELOW. COMMENTS: 1. NORMAL LEFT VENTRICULAR EJECTION FRACTION 50-55%. 2. NORMAL WALL MOTION. 3. MILD MITRAL, TRICUSPID AND AORTIC REGURGITATION. TECHNOLOGIST: JOSETTE HUFFMAN
== END 2024-11-23 12:06 | disposition home or self-care (01) | DRG 641 ==
LOC: ER 14:43 → EEVIPCON 14:43 → ERHOLD 16:53 → 2ND 17:39 → OBSVTOIN 11-20 11:30
PROVIDERS: ADMIT Internal Medicine; ATTEND Internal Medicine
PROC: 0T9B70Z Drainage of Bladder with Drainage Device, Via Natural or Artificial Opening (ICD-10-PCS; principal; 2024-11-21)
DX: E87.1 Hypo-osmolality and hyponatremia (principal); N39.0 Urinary tract infection, site not specified; I47.10 Supraventricular tachycardia, unspecified; E87.6 Hypokalemia; J43.9 Emphysema, unspecified; E86.9 Volume depletion, unspecified; I49.3 Ventricular premature depolarization; I12.9 Hypertensive chronic kidney disease with stage 1 through stage 4 chronic kidney disease, or unspecified chronic kidney disease; N18.9 Chronic kidney disease, unspecified; R73.9 Hyperglycemia, unspecified; R31.29 Other microscopic hematuria; Z87.891 Personal history of nicotine dependence; B96.20 Unspecified Escherichia coli [E. coli] as the cause of diseases classified elsewhere
CPT/HCPCS: 36415; 51702; 71045; 80048; 80053; 80061; 81001; 82570; 83036; 83735; 83880; 83930; 83935; 84100; 84132; 84156; 84300; 84439; 84443; 84484; 85025; 87077; 87086; 87088; 87186; 93005; 93306; 94640; 96361; 96374; 96375; 97110; 97116; 97161; 97530; 99285; G0378; J0696; J1940; J3475; J3480; J7040; J7050; J7613; J7644